=== PATIENT | female | born 1985 | race Caucasian/White ===

== ENCOUNTER 2025-07-09 13:14 | Emergency (ER) | payer OTHER ==
[~2025-07-09] VITALS: Ht 157.5 cm; Wt 72.1 kg
[2025-07-09] MEDS ORDERED: FLUO40CA PO (13:23)
[2025-07-09] MEDS ORDERED: PRAZ1CAP PO (13:25)
[2025-07-09] MEDS ORDERED: HYDR-3363 PO (13:25)
[2025-07-09] MEDS ORDERED: PRAZ2CAP PO (13:25)
[2025-07-09] MEDS ORDERED: HYDR-643 PO (13:25)
[2025-07-09 14:48] VITALS: BP 117/63; TEMP 98.2; O2SAT 98
== END 2025-07-09 14:50 | disposition home or self-care (01) ==
LOC: M ED 13:14
DX: S61.212A Laceration without foreign body of right middle finger without damage to nail, initial encounter (principal); Y92.019 Unspecified place in single-family (private) house as the place of occurrence of the external cause; Y93.9 Activity, unspecified; Y99.9 Unspecified external cause status; W26.8XXA Contact with other sharp object(s), not elsewhere classified, initial encounter; E28.2 Polycystic ovarian syndrome; F41.9 Anxiety disorder, unspecified; F32.A Depression, unspecified; Z88.0 Allergy status to penicillin; Z88.8 Allergy status to other drugs, medicaments and biological substances; Z79.899 Other long term (current) drug therapy